=== PATIENT | male | born 1940 | race Caucasian/White ===

== ENCOUNTER → 2020-10-29 | Outpatient (CLI) | payer MEDICARE, BC ==
--- NOTE | 2020-10-29 09:46 | RADENCPD ---
Date/Time of Encounter Date of Encounter: Oct 29, 2020 Time of Encounter: 09:30 Encounter This is a procedure consultation (Telephone) Diagnosis: C61 prostate cancer, unfavorable intermediate risk Requesting physicians: Parminder Tovar Procedure(s): SpaceOAR 03983 Fiducial markers [id number] Subjective: Patient is a 80 yo with PSA screening detected unfavorable intermediate risk prostate cancer T1c Ione 3+4=7 PSA 14, previously on active surveillance with rising PSA. History of lacunar infarct in the left erica August 2020. He has minimal LUTS, AUA score 6 He has no bowel complaints He has ED Takes ASA 81 mg daily, no blood thinners Objective: N/A Telehealth Allergies: Sulfa, MTX, glucophage, lipitor, IVP dye Meds reviewed: No contraindications to procedure noted ASA will be held for 1 week prior Gland 63 cc per report Receiving lupron from August 2020- Assessment/plan: Good candidate for SpaceOAR and fiducial placement. Discussed rationale for procedures and decreased acute and late RT toxicity risks associated with SpaceOAR. Described procedure for placement in detail. Explained our next procedure dates are 11/14/20 and 11/15/20. Ideally placement would precede simulation by 1-2 weeks. Discussed that device mechanical service representative may, or may not be present for the procedure. Patient agreed to the above. Billing statement: This is a telehealth consultation. Total time spent 12 minutes, (1 minute preparing for visit, 2 minutes obtaining HPI, 2 minutes reviewing records/diagnostic tests, 4 minutes discussing management options, and 3 minutes writing this note) MICHAEL SHIRLEY MD Oct 29, 2020 09:46
== END ==
LOC: M ONCR 09:17
PROVIDERS: ATTEND General Practice
DX: C61 Malignant neoplasm of prostate (principal)

== ENCOUNTER → 2020-11-15 | Outpatient (CLI) | payer MEDICARE, BC ==
[~2020-11-15] MED LIST: CIPR-249 PO; LIDOCAINE 2% MDV 20ML VIAL XX ONE; LIDOCAINE VISCOUS 2% SOLN 15ML UDC XX ONE; LORA1TAB4 PO
--- NOTE | 2020-11-15 15:10 | ROOPDOC ---
[facility] Report Of Operation Report of Operation [facility] [facility] Radiation Oncology SpaceOAR & fiducial marker procedure note Name: Ariel CrLewisB: 44 Procedure diagnosis: C61.0 Prostate cancer Procedure date/time: 11/15/2020 1400 Physician: Michael Shirley MD Implant(s): Fiducials (2 seeds per needle): Qfix [id number] Lot# [id number] Exp 01/21/2024 Qty 2 SpaceOAR: [id number] Lot# [id number] Exp 07/05/22 Qty 1 Description of procedure: Informed consent for placement of SpaceOAR and fiducial marker seeds (4) was o btained pre-procedure. A timeout was completed. The patient was placed in the high lithotomy position and a rectal exam with 2% viscous lidocaine was completed. The rectal vault was empty of stool. A chlorhexidine prep of the perineal skin was completed. The trans-rectal ultrasound probe was introduced with some minor difficulty due due to patient apprehension. Once inserted the prostate and the rectal bulb were well visualized. 2% lidocaine was infiltrated in the skin and soft tissues of the perineum via a 23 Ga spinal needle under ultrasound guidance. 10cc of local was used. Patient tolerated the block well. The prostate and periprostatic tissues were notably lax and mobile, suggestive of lupron effect. Next, fiducial marker seeds were placed via pre-loaded 18 Ga needles under ultrasound guidance. 2 seeds were placed in the left SV and mid gland, respectively. 2 seeds were placed in the right SV and mid gland, respectively. A hydro-dissection of the space between the prostate and rectum was conducted by locating Denonvilliers fascia and injecting 10 cc of isotonic saline through an 18 Ga needle into the potential space there to develop a plane for SpaceOAR implant. Once the hydro- dissection was complete, the needle was withdrawn to mid-gland and the implant needle was then checked in the sagittal and transverse planes for optimal position and once verified, the SpaceOAR implant was placed. The implant was noted to have excellent positioning from base to near-apex with excellent lift. The needle was withdrawn and the ultrasound probe was removed from the rectum. Post procedure vital signs were WNL. The patient tolerated the procedure well without significant discomfort. EBL: <1cc Disposition: Simulation for radiation therapy will occur in the next 1-2 weeks The patient will complete antibiotic prophylaxis this evening MICHAEL SHIRLEY MD Nov 15, 2020 15:10
== END ==
LOC: M ONCR 12:35
PROVIDERS: ATTEND General Practice
DX: C61 Malignant neoplasm of prostate (principal)
CPT/HCPCS: 55874; 55876; A4648; C1889